=== PATIENT | female | born 1960 ===

== ENCOUNTER → 2023-08-05 | Outpatient (CLI) | payer OTHER | LOC: LAB 17:30 → LAB SHORT 17:30 | DX: R30.0 Dysuria (principal); R31.9 Hematuria, unspecified | CPT/HCPCS: 87077; 87086; 87186 ==

== ENCOUNTER → 2024-02-09 | Outpatient (CLI) | payer OTHER | LOC: LAB SHORT 10:00 → LAB 10:00 | DX: R30.0 Dysuria (principal) | CPT/HCPCS: 87077; 87086; 87186 ==